=== PATIENT | male | born 1980 | race African-American/Black ===

== ENCOUNTER 2017-02-25 03:56 | Emergency (ER) | payer SELFPAY ==
[~2017-02-25] VITALS: Ht 177.8 cm; Wt 82.0 kg
[2017-02-25] MEDS ORDERED: SODIUM CHLORIDE 0.9% 1,000 ML IV ONE (06:20)
[2017-02-25] MEDS ORDERED: LORAZEPAM 2MG/ML CPJ IV STA (06:20)
[2017-02-25 06:39] LABS: BASOPHILS % 0.5 % (0.0-2.0); EOSINOPHILS % 1.5 % (0.0-5.0); HEMOGLOBIN. 12.7 g/dL (14.0-18.0); LYMPHOCYTES % 35.5 % (20.0-50.0); MEAN CORPUSCULAR HEMOGLOBIN 29.7 pg (28.0-32.0); MEAN CORPUSCULAR VOLUME 88.9 fL (80.0-94.0); MONOCYTES % 8.6 % (2.0-8.0); NEUTROPHILS % 53.9 % (40.0-76.0); PLATELET 294 x1000/uL (130-400); RED BLOOD CELL COUNT 4.28 mill/uL (4.7-6.1)
[2017-02-25 06:45] LABS: PROTHROMBIN TIME 10.9 sec (9.4-11.6)
[2017-02-25 06:50] LABS: AMMONIA 35 uMol/L (<32)
[2017-02-25 06:57] LABS: CARBON DIOXIDE 24 mEq/L (21-32); CHLORIDE 103 mEq/L (98-107); ETHANOL BLOOD < 10 mg/dL; TROPONIN I < 0.02 ng/mL (0.00-0.04)
[2017-02-25 08:08] VITALS: BP 124/79
== END 2017-02-25 09:09 | disposition left against medical advice (07) ==
LOC: ER 03:56
DX: R45.851 Suicidal ideations (principal); F60.1 Schizoid personality disorder; F17.210 Nicotine dependence, cigarettes, uncomplicated; E87.6 Hypokalemia; R73.9 Hyperglycemia, unspecified; F10.10 Alcohol abuse, uncomplicated; Y90.0 Blood alcohol level of less than 20 mg/100 ml; Z88.8 Allergy status to other drugs, medicaments and biological substances
CPT/HCPCS: 36415; 80053; 80307; 80329; 82140; 83690; 83880; 84484; 85025; 85610; 93005; 99285; G0482; Z7610; J2060; J7030